=== PATIENT | male | born 1955 ===

== ENCOUNTER 2018-02-28 11:45 | Emergency (ER) | payer MEDICAID ==
[2018-02-28 11:45] VITALS: BMI 25.0
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
--- NOTE | 2018-02-28 13:51 | RAD ---
Date of service: 02/28/2018 HISTORY: psychosis COMPARISON: 08/04/2016. TECHNIQUE: Chest PA and lateral FINDINGS: LUNGS: No active pulmonary disease. PLEURA: No significant pleural effusion identified. No pneumothorax apparent. CARDIOVASCULAR: No radiographic findings to suggest acute or significant cardiovascular disease. OSSEOUS STRUCTURES: No significant abnormalities. VISUALIZED UPPER ABDOMEN: Normal. OTHER FINDINGS: None. IMPRESSION: No active disease. No significant interval change compared to the prior examination(s).
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
[2018-02-28 14:08] LABS: BASO % 0.3 % (0.0-2.0); HEMOGLOBIN 15.6 g/dL (12.0-18.0); LYMPH # 1.7 K/uL (1.0-4.3); LYMPH % 10.6 % (20.0-40.0); MEAN CELL VOLUME 97.5 fl (80.0-94.0); MEAN CORPUSCULAR HEMOGLOBIN 32.8 pg (27.0-31.0); MEAN CORPUSCULAR HGB CONC 33.7 g/dL (33.0-37.0); MEAN PLATELET VOLUME 7.5 fl (7.2-11.7); MONO # 0.7 K/uL (0.0-0.8); NEUT # 13.8 K/uL (1.8-7.0); NEUT % 85.1 % (50.0-75.0); NRBC % 0.1 % (0.0-0.0); RBC 4.75 Mil/uL (4.40-5.90); RED CELL DISTRIBUTION WIDTH 15.5 % (11.5-14.5); WHITE BLOOD COUNT 16.2 K/uL (4.8-10.8)
[2018-02-28 14:38] LABS: BLOOD UREA NITROGEN 19 mg/dl (9-20); GFR NON-AFRICAN AMERICAN > 60
[2018-02-28 14:39] LABS: ALB/GLOB RATIO 1.3 (1.0-2.1); ALBUMIN 4.8 g/dL (3.5-5.0); ALT/SGPT 64 U/L (21-72); AST/SGOT 38 U/L (17-59); CALCIUM 9.6 mg/dL (8.4-10.2)
[2018-02-28 15:06] LABS: BARBITURATES, UR POSITIVE (NEGATIVE); BENZODIAZEPINES, UR POSITIVE (NEGATIVE)
[2018-02-28 15:07] LABS: OPIATES, UR POSITIVE (NEGATIVE); PHENCYCLIDINE, UR NEGATIVE (NEGATIVE)
[2018-02-28 17:13] VITALS: BP 122/78; PULSE 82; RESP 18; TEMP 98; O2SAT 100
== END 2018-02-28 15:30 | disposition home or self-care (01) ==
LOC: H.ER 11:45
DX: F41.9 Anxiety disorder, unspecified (principal); E78.00 Pure hypercholesterolemia, unspecified; Z86.59 Personal history of other mental and behavioral disorders; Z00.8 Encounter for other general examination